=== PATIENT | female | born 1995 | race Native Hawaiian/Other Pacific Islander ===

== ENCOUNTER 2022-10-08 19:05 | Outpatient (CLI) | payer OTHER | END 2022-10-08 19:06 | disposition critical access hospital (66) | LOC: EMS 19:05 | DX: R10.12 Left upper quadrant pain (principal); M54.50 Low back pain, unspecified; R11.0 Nausea; R53.1 Weakness | CPT/HCPCS: A0425; A0427 ==

== ENCOUNTER 2022-10-08 19:25 | Emergency (ER) | payer OTHER ==
[2022-10-08 20:12] LABS: BASOPHILS # (AUTO) 0.1 10^3/uL (0.0-0.1); BASOPHILS % (AUTO) 0.9 %; EOSINOPHILS # (AUTO) 0.3 10^3/uL (0.0-0.7); EOSINOPHILS % (AUTO) 2.8 %; HCT - HEMATOCRIT 38.3 % (37.0-47.0); HGB - HEMOGLOBIN 12.4 g/dL (12.0-16.0); LYMPHOCYTES # (AUTO) 3.1 10^3/uL (1.5-3.5); LYMPHOCYTES % (AUTO) 33.1 %; MEAN CORPUSCULAR HEMOGLOBIN 29.3 pg (27.0-31.0); MEAN CORPUSCULAR HGB CONC 32.4 g/dL (32.0-36.0); MEAN CORPUSCULAR VOLUME 90.5 fL (81.0-99.0); MEAN PLATELET VOLUME 11.2 fL (7.9-10.8); MONOCYTES # (AUTO) 0.6 10^3/uL (0.0-1.0); MONOCYTES % (AUTO) 6.1 %; NEUTROPHILS # (AUTO) 5.3 10^3/uL (1.5-6.6); PLT - PLATELET COUNT 226 10^3/uL (130-450); RED BLOOD COUNT 4.23 10^6/uL (4.20-5.40); RED CELL DISTRIBUTION WIDTH 12.6 % (12.0-15.0); WHITE BLOOD COUNT 9.3 x10^3/uL (4.8-10.8)
[2022-10-08] MEDS ORDERED: KETOROLAC 15 MG/ML VIAL IVP STA (20:12)
[2022-10-08] MEDS ORDERED: SODIUM CHLORIDE 0.9% 1,000 ML IV STA (20:12)
--- NOTE | 2022-10-08 20:18 | ED Physician Documentation ---
History of Present Illness - Stated complaint Stated Complaint: ABD PX - Chief complaint Chief Complaint: Abd Pain - History obtained from History obtained from: Patient - Additonal information Additional information: 26yF, previously healthy, with no psh, p/w LUQ pain radiating to midabdomen with associated cramping X 5 hours, sudden onset, waxing/waning, currently 6/10, associated with nausea. LMP 4/20 lasting 5 days then stopped. patient says she seems to be spotting again today now. denies fever, urinary sx, diarrhea. Review of Systems Constitutional: denies: Fever GI: reports: Abdominal Pain, Nausea. denies: Vomiting, Diarrhea : denies: Dysuria PD PAST MEDICAL HISTORY - Present Medications Home Medications: Ambulatory Orders Medication Instructions Recorded Confirmed Ketorolac [Toradol] 10 mg PO Q6H PRN #20 tablet 10/08/22 Sumatriptan Succinate [Imitrex] 50 mg PO BID PRN #20 tablet 10/08/22 - Allergies Allergies/Adverse Reactions: Allergies Allergy/AdvReac Type Severity Reaction Status Date / Time No Known Drug Allergies Allergy Verified 10/08/22 19:47 PD ED PE NORMAL - Vitals Vital signs reviewed: Yes - General General: Alert and oriented X 3, No acute distress, Well developed/nourished - HEENT HEENT: Atraumatic, PERRL, EOMI - Neck Neck: Supple, no meningeal sign - Cardiac Cardiac: RRR - Respiratory Respiratory: No respiratory distress, Clear bilaterally - Abdomen Abdomen: Non tender, Non distended, Other (discomfort to LUQ palpation) - Back Back: No CVA TTP - Derm Derm: Normal color, Warm and dry - Neuro Neuro: No motor deficit, No sensory deficit - Psych Psych: Normal mood, Normal affect Results - Vitals Vitals: Vital Signs - 24 hr 10/08/22 19:45 Temperature 36.9 C Heart Rate 72 Respiratory 17 Rate Blood Pressure 126/83 H O2 Saturation 100 Oxygen O2 Source Room air - Labs Labs: Laboratory Tests 10/08/22 10/08/22 10/08/22 20:07 20:07 20:21 WBC 9.3 RBC 4.23 Hgb 12.4 Hct 38.3 MCV 90.5 MCH 29.3 MCHC 32.4 RDW 12.6 Plt Count 226 MPV 11.2 H Neut # (Auto) 5.3 Lymph # (Auto) 3.1 Ford # (Auto) 0.6 Eos # (Auto) 0.3 Baso # (Auto) 0.1 Absolute Nucleated RBC 0.00 Nucleated RBC % 0.0 Sodium 140 Potassium 3.8 Chloride 104 Carbon Dioxide 27 Anion Gap 9.0 BUN 15 Creatinine 0.6 Estimated GFR (MDRD) 122 Glucose 111 H Calcium 9.4 Total Bilirubin 0.4 AST 16 ALT 14 Alkaline Phosphatase 65 Total Protein 7.6 Albumin 4.4 Globulin 3.2 Albumin/Globulin Ratio 1.4 Lipase 37 Urine Color YELLOW Urine Clarity CLEAR Urine pH 7.5 Ur Specific [place] 1.020 Urine Protein NEGATIVE Urine Glucose (UA) NEGATIVE Urine Ketones NEGATIVE Urine Occult Blood NEGATIVE Urine Nitrite NEGATIVE Urine Bilirubin NEGATIVE Urine Urobilinogen 0.2 (NORMAL) Ur Leukocyte Esterase NEGATIVE Ur Microscopic Review NOT INDICATED Urine Culture Comments NOT INDICATED Urine HCG, Qual NEGATIVE PD Medical Decision Making - ED course ED course: 26yF p/w LUQ cramping X 5 hours with associated nausea. She was given 4mg IV zofran en route with ems with resolution of nausea and is now receiving 15mg IV toradol for pain. Also getting 1 L IVF. will reevaluate. cbc, abdominal panel, u/a and urine hcg ordered. DDX includes irregular menses with menstrual cramping, viral gastroenteritis, kidney stones, , or generalized GI upset. She has no localized pain to lower abdomen, making ectopic or ovarian torsion unlikely. she also is pretty comfortable appearing and has benign exam. plan to f/u labs. Labs all normal. d/w patient who says abd pain resolved with toradol but now has a migraine and is requesting rx for migraine meds. imitrex and toradol sent to pharmacy. return precautions given. Departure - Departure Disposition: 01 Home, Self Care Clinical Impression: Nausea, Abdominal pain Condition: Stable Instructions: Abdominal Pain, ED Headache Migraine Prescriptions: Sumatriptan Succinate [Imitrex] 50 mg PO BID PRN #20 tablet PRN Reason: Migraine Ketorolac [Toradol] 10 mg PO Q6H PRN #20 tablet PRN Reason: Pain Comments: You are seen in the emergency department for abdominal pain and migraine. Your lab work was normal. Please follow-up with your primary care provider and return to the emergency department for new or worsening symptoms or other concerns. [facility] [place].
[2022-10-08 20:24] LABS: ALBUMIN 4.4 g/dL (3.2-5.5); ALBUMIN/GLOBULIN RATIO 1.4 (1.0-2.2); BILIRUBIN,TOTAL 0.4 mg/dL (0.2-1.0); CALCIUM 9.4 mg/dL (8.5-10.3); CREATININE 0.6 mg/dL (0.4-1.0); POTASSIUM 3.8 mmol/L (3.5-5.0); TOTAL PROTEIN 7.6 g/dL (6.7-8.2)
[2022-10-08 20:26] LABS: BILIRUBIN,URINE NEGATIVE (NEGATIVE); GLUCOSE, URINE (UA) NEGATIVE (NEGATIVE); KETONES,URINE (UA) NEGATIVE (NEGATIVE); LEUKOCYTE ESTERASE, URINE NEGATIVE (NEGATIVE); NITRITE,URINE NEGATIVE (NEGATIVE); OCCULT BLOOD,URINE NEGATIVE (NEGATIVE); PH,URINE 7.5 PH (5.0-7.5); PROTEIN,URINE NEGATIVE (NEGATIVE); UROBILINOGEN,URINE 0.2 (NORMAL) E.U./dL (NORMAL)
[2022-10-08 20:29] LABS: CLARITY,URINE CLEAR (CLEAR); HCG UR QUAL NEGATIVE
[2022-10-08 21:26] VITALS: BP 115/65
== END 2022-10-08 22:05 | disposition home or self-care (01) ==
LOC: ED 19:25
DX: R10.12 Left upper quadrant pain (principal); G43.909 Migraine, unspecified, not intractable, without status migrainosus
CPT/HCPCS: 36415; 80053; 81001; 81003; 81025; 83690; 85025; 87086; 96374; 99284